=== PATIENT | female | born 1985 ===

== ENCOUNTER 2018-01-26 09:13 | Emergency (ER) | payer OTHER ==
[2018-01-26 09:13] VITALS: BMI 33.0
[2018-01-26] MEDS ORDERED: Sodium Chloride 0.9% 1,000 ML IV STA (09:42)
--- NOTE | 2018-01-26 09:48 | ED PDOC ---
Arrival/HPI - General Chief Complaint: GI Problem Time Seen by Provider: 01/26/18 09:19 Historian: Patient - History of Present Illness Narrative History of Present Illness (Text): 01/26/18 09:44 32yo female with no pmhx who present with complaint of nausea, nonbloody/ billious vomiting, diarrhea and intermittent crampy abdominal pain. States the abdominal pain usually resolves after vomiting. States she became dizzy while at work this morning. Describes dizziness as lightheadedness. +Chills. Denies fever, melena, hematemesis, back pain, urinary symptoms, sick contact, travel, chest pain. Past Medical History - Provider Review Nursing Documentation Reviewed: Yes - Cardiac Hx Cardiac Disorders: No - Pulmonary Hx Respiratory Disorders: No - Neurological Hx Neurological Disorder: No - HEENT Hx HEENT Disorder: No - Renal Hx Renal Disorder: No - Endocrine/Metabolic Hx Endocrine Disorders: No - Hematological/Oncological Hx Blood Disorders: No - Integumentary Hx Dermatological Disorder: No - Musculoskeletal/Rheumatological Hx Musculoskeletal Disorders: No - Gastrointestinal Hx Gastrointestinal Disorders: No - Genitourinary/Gynecological Hx Genitourinary Disorders: No - Psychiatric Hx Psychophysiologic Disorder: No Hx Substance Use: No - Surgical History Hx Section: Yes - Anesthesia Hx Anesthesia: Yes Hx Anesthesia Reactions: No Family/Social History - Physician Review Nursing Documentation Reviewed: Yes Family/Social History: Unknown Family HX Smoking Status: Unknown If Ever Smoked Hx Alcohol Use: No Hx Substance Use: No Allergies/Home Meds Allergies/Adverse Reactions: Allergies No Known Allergies Allergy (Verified 01/26/18 09:33) Review of Systems - Physician Review All systems were reviewed & negative as marked: Yes - Review of Systems Constitutional: Normal Eyes: Normal ENT: Normal Respiratory: Normal Cardiovascular: Normal Gastrointestinal: Abdominal Pain, Diarrhea, Nausea, Vomiting. absent: Constipation, Hematochezia, Hematemesis Genitourinary Female: Normal Musculoskeletal: Normal Skin: Normal Neurological: Normal Endocrine: Normal Hemo/Lymphatic: Normal Psychiatric: Normal Physical Exam Vital Signs Reviewed: Yes Vital Signs Temp Pulse Resp BP Pulse Ox 01/26/18 12:51 98.3 F 100 H 18 106/63 98 01/26/18 12:50 98.3 F 100 H 18 106/63 98 01/26/18 11:38 102 H 18 104/60 99 01/26/18 09:33 99.1 F 107 H 16 105/67 98 01/26/18 09:13 99.1 F 107 H 16 105/67 98 Temperature: Afebrile Blood Pressure: Normal Pulse: Regular Respiratory Rate: Normal Appearance: Positive for: Well-Appearing, Non-Toxic, Comfortable Pain Distress: None Mental Status: Positive for: Alert and Oriented X 3 - Systems Exam Head: Present: Atraumatic, Normocephalic Pupils: Present: PERRL Extroacular Muscles: Present: EOMI Conjunctiva: Present: Normal Mouth: Present: Moist Mucous Membranes Neck: Present: Normal Range of Motion Respiratory/Chest: Present: Clear to Auscultation, Good Air Exchange. No: Respiratory Distress, Accessory Muscle Use Cardiovascular: Present: Regular Rate and Rhythm, Normal S1, S2. No: Murmurs Abdomen: No: Tenderness, Distention, Peritoneal Signs Back: Present: Normal Inspection Upper Extremity: Present: Normal Inspection. No: Cyanosis, Edema Lower Extremity: Present: Normal Inspection. No: Edema Neurological: Present: GCS=15, CN II-XII Intact, Speech Normal Skin: Present: Warm, Dry, Normal Color. No: Rashes Psychiatric: Present: Alert, Oriented x 3, Normal Insight, Normal Concentration Medical Decision Making ED Course and Treatment: 01/26/18 19:10 32yo female who present with 2days history of abdominal pain with associated nausea/vomiting and diarrhea. She was hemodynamically stable and comfortable in ED. Leukocytosis was noted and abdominal CT was ordered to r/o appendicitis. GALLBLADDER AND BILE DUCTS: The gallbladder is contracted. PANCREAS: Normal in size with homogeneous enhancement. No gross lesion or ductal dilatation. SPLEEN: Normal in size and appearance. ADRENALS: No discrete nodule. KIDNEYS AND URETERS: Normal in size with homogeneous enhancement. No hydronephrosis or mass. VASCULATURE: No aortic aneurysm. BOWEL: There is fluid in the stomach and proximal small bowel loops. There are fluid- filled mildly dilated mid and distal small bowel loops with mild wall enhancement. There is also fluid in the ascending colon. There is apparent mild mural thickening in the transverse colon. The left hemicolon is decompressed. No bowel obstruction. APPENDIX: Not distinctly identified. No inflammatory changes in the right lower quadrant. PERITONEUM: No free fluid. No free air. LYMPH NODES: Mildly prominent right lower quadrant mesenteric lymph nodes are likely reactive in etiology BLADDER: Partially decompressed. REPRODUCTIVE: The uterus is normal in size. BONES: No acute fracture. Within normal limits for the patient's age. OTHER FINDINGS: None. IMPRESSION: 1. Findings are most compatible with nonspecific infectious/ inflammatory enterocolitis. No bowel obstruction. 2. Mild hepatomegaly and fatty liver. Result was DW the pt. She was able to tolerate PO challenge in ED . She was placed on flagyl secondary to the CT finding. She was DC home and referred to her PMD. Advised to follow BRAT diet. TRT ED for any new or worsening symptoms - Lab Interpretations Lab Results: 01/26/18 09:42 01/26/18 09:42 Lab Results 01/26/18 09:43: Urine Color Yellow, Urine Appearance Clear, Urine pH 6.0, Ur Specific [place] >= 1.030, Urine Protein Trace H, Urine Glucose (UA) Negative, Urine Ketones Negative, Urine Blood Negative, Urine Nitrate Negative, Urine Bilirubin Negative, Urine Urobilinogen 0.2, Ur Leukocyte Esterase Negative, Urine RBC Negative, Urine WBC 0 - 2, Ur Epithelial Cells 1 - 3, Urine Bacteria Few 01/26/18 09:42: Sodium 141, Potassium 3.5 L, Chloride 104, Carbon Dioxide 23, Anion Gap 17, BUN 15, Creatinine 0.5 L, Est GFR ( Amer) > 60, Est GFR ( Non-Af Amer) > 60, Random Glucose 114 H, Calcium 9.1, Magnesium 1.8, Total Bilirubin 0.6, AST 24, ALT 24, Alkaline Phosphatase 73, Total Protein 8.1, Albumin 4.4, Globulin 3.7, Albumin/Globulin Ratio 1.2, Lipase 37 01/26/18 09:42: PT 15.4 H, INR 1.33 H, APTT 26.7 01/26/18 09:42: WBC 16.7 H, RBC 4.67, Hgb 12.3, Hct 37.5, MCV 80.3, MCH 26.3, MCHC 32.8, RDW 13.5, Plt Count 379, MPV 9.1, Gran % 95.8 H, Lymph % (Auto) 2.7 L , [place] % (Auto) 1.4, Eos % (Auto) 0.0 L, Baso % (Auto) 0.1, Gran # 15.96 H, Lymph # (Auto) 0.5 L, [place] # (Auto) 0.2, Eos # (Auto) 0.0, Baso # (Auto) 0.01, Neutrophils % (Manual) 94 H, Band Neutrophils % 2, Lymphocytes % (Manual) 2 L, Monocytes % (Manual) 2, Platelet Evaluation Normal - RAD Interpretation Radiology Orders: 01/26/18 10:17 ABD & PELVIS IV CONTRAST ONLY [CT] Stat - Medication Orders Current Medication Orders: Discontinued Medications Famotidine (Pepcid) 20 mg IVP STAT STA Stop: 01/26/18 09:43 Last Admin: 01/26/18 10:04 Dose: 20 mg IVP Administration Document 01/26/18 10:04 SRE (Rec: 01/26/18 10:04 SRE [id number]) Charges for Administration # of IVP Administrations 1 Sodium Chloride (Sodium Chloride 0.9%) 1,000 mls @ 1,000 mls/hr IV .Q1H STA Stop: 01/26/18 10:41 Last Admin: 01/26/18 09:54 Dose: 1,000 mls/hr eMAR Start Stop Document 01/26/18 09:54 SRE (Rec: 01/26/18 09:54 SRE [id number]) Intravenous Solution Start Date 01/26/18 Start Time 09:54 End Date 01/26/18 End time 11:00 Total Infusion Time 66 Metronidazole (Flagyl) 500 mg PO STAT STA PRN Reason: Protocol Stop: 01/26/18 12:12 Last Admin: 01/26/18 12:42 Dose: 500 mg Ondansetron HCl (Zofran Inj) 4 mg IVP STAT STA Stop: 01/26/18 09:43 Last Admin: 01/26/18 10:03 Dose: 4 mg IVP Administration Document 01/26/18 10:03 SRE (Rec: 01/26/18 10:04 SRE [id number]) Charges for Administration # of IVP Administrations 1 Ondansetron HCl (Zofran Inj) 4 mg IVP STAT STA Stop: 01/26/18 11:08 Last Admin: 01/26/18 11:25 Dose: 4 mg IVP Administration Document 01/26/18 11:25 SRE (Rec: 01/26/18 11:25 SRE [id number]) Charges for Administration # of IVP Administrations 1 Potassium Chloride (K-Dur 20 Meq Er Tab) 20 meq PO STAT STA Stop: 01/26/18 10:25 Last Admin: 01/26/18 10:38 Dose: 20 meq Disposition/Present on Arrival - Present on Arrival Any Indicators Present on Arrival: No History of DVT/PE: No History of Uncontrolled Diabetes: No Urinary Catheter: No History of Decub. Ulcer: No History Surgical Site Infection Following: None - Disposition Have Diagnosis and Disposition been Completed?: Yes Diagnosis: Abdominal pain Disposition: HOME/ ROUTINE Disposition Time: 12:35 Patient Plan: Discharge Condition: STABLE Discharge Instructions (ExitCare): Acute Abdomen (Belly Pain), Nausea and Vomiting, Adult (DC) Additional Instructions: Follow BRAT diet Drink plnety of fluid Follow up with your Doctor Return to ED for any new or worsening symptoms Prescriptions: Famotidine [Pepcid] 40 mg PO DAILY #15 tab metroNIDAZOLE [Flagyl] 500 mg PO BID #14 tab Ondansetron ODT [Zofran ODT] 4 mg PO Q6 #8 odt Referrals: Fuentes Cortez [Primary Care Provider] - Follow up with primary Forms: [email or web address] (Dominican), WORK NOTE
[2018-01-26 10:06] LABS: BASO # 0.01 K/mm3 (0.0-2.0); BASO % 0.1 % (0.0-3.0); GRAN # 15.96 (1.4-6.5); GRAN % 95.8 % (50.0-68.0); HEMOGLOBIN 12.3 g/dL (12.0-16.0); LYMPH # 0.5 (1.2-3.4); LYMPH % 2.7 % (22.0-35.0); MEAN CELL VOLUME 80.3 fl (80.0-105.0); MEAN CORPUSCULAR HEMOGLOBIN 26.3 pg (25.0-35.0); MEAN CORPUSCULAR HGB CONC 32.8 g/dl (31.0-37.0); MEAN PLATELET VOLUME 9.1 fl (7.0-11.0); MONO # 0.2 (0.1-0.6); MONO % 1.4 % (1.0-6.0); PLATELET COUNT 379 10^3/uL (120.0-450.0); RBC 4.67 10^6/uL (3.5-6.1); RED CELL DISTRIBUTION WIDTH 13.5 % (11.5-14.5); WHITE BLOOD COUNT 16.7 10^3/ul (4.5-11.0)
[2018-01-26 10:09] LABS: URINE BILIRUBIN NEGATIVE (NEGATIVE); URINE BLOOD NEGATIVE (NEGATIVE); URINE GLUCOSE (UA) NEGATIVE (NEGATIVE); URINE LEUKOCYTE ESTERASE NEGATIVE Leu/uL (NEGATIVE); URINE PROTEIN TRACE mg/dL (<30 mg/dL); URINE UROBILINOGEN 0.2 E.U./dL (<1 E.U./dL)
[2018-01-26 10:17] LABS: INR 1.33 (0.93-1.08); PARTIAL THROMBOPLASTIN TIME 26.7 Seconds (25.1-36.5); PROTHROMBIN TIME 15.4 SECONDS (9.4-12.5)
[2018-01-26 10:18] LABS: ALB/GLOB RATIO 1.2 (1.1-1.8); ALBUMIN 4.4 g/dL (3.0-4.8); ALT/SGPT 24 U/L (7-56); AST/SGOT 24 U/L (14-36); BLOOD UREA NITROGEN 15 mg/dL (7-21); CALCIUM 9.1 mg/dL (8.4-10.5); GFR AFRICAN-AMERICAN > 60; GFR NON-AFRICAN AMERICAN > 60; LIPASE 37 U/L (23-300)
[2018-01-26 10:19] LABS: URINE APPEARANCE CLEAR (CLEAR); URINE COLOR YELLOW (YELLOW)
[2018-01-26] MEDS ORDERED: Iohexol 350 MG/100 ML VIAL ONE (10:23)
[2018-01-26] MEDS ORDERED: Potassium Chloride 20 mEq ER Tab PO STA (10:24)
[2018-01-26 10:27] LABS: URINE RBC NEGATIVE /hpf (0-2); URINE WBC 0 - 2 /hpf (0-6)
[2018-01-26 10:28] LABS: URINE BACTERIA FEW (NEG)
[2018-01-26 10:35] LABS: BAND 2 % (0-2); LYMPHOCYTE 2 % (22.0-35.0); MONOCYTE 2 % (1.0-6.0); NEUTROPHIL 94 % (50.0-70.0); PLATELET ESTIMATE NORMAL (NORMAL)
--- NOTE | 2018-01-26 11:30 | CT ---
Date of service: 01/26/2018 PROCEDURE: CT Abdomen and Pelvis with contrast HISTORY: Abdominal pain COMPARISON: None. TECHNIQUE: CT scan of the abdomen and pelvis was performed after administration of intravenous contrast. Oral contrast was not administered. Coronal and sagittal reformatted images were obtained. Contrast dose: 100 mL Omnipaque 350 Radiation dose: Total exam DLP = 703.84 mGy-cm. This CT exam was performed using one or more of the following dose reduction techniques: Automated exposure control, adjustment of the mA and/or kV according to patient size, and/or use of iterative reconstruction technique. FINDINGS: LOWER THORAX: There is dependent atelectasis in the lung bases. LIVER: There is mild hepatomegaly and diffuse fatty infiltration in the liver. No gross lesion or ductal dilatation. GALLBLADDER AND BILE DUCTS: The gallbladder is contracted. PANCREAS: Normal in size with homogeneous enhancement. No gross lesion or ductal dilatation. SPLEEN: Normal in size and appearance. ADRENALS: No discrete nodule. KIDNEYS AND URETERS: Normal in size with homogeneous enhancement. No hydronephrosis or mass. VASCULATURE: No aortic aneurysm. BOWEL: There is fluid in the stomach and proximal small bowel loops. There are fluid-filled mildly dilated mid and distal small bowel loops with mild wall enhancement. There is also fluid in the ascending colon. There is apparent mild mural thickening in the transverse colon. The left hemicolon is decompressed. No bowel obstruction. APPENDIX: Not distinctly identified. No inflammatory changes in the right lower quadrant. PERITONEUM: No free fluid. No free air. LYMPH NODES: Mildly prominent right lower quadrant mesenteric lymph nodes are likely reactive in etiology BLADDER: Partially decompressed. REPRODUCTIVE: The uterus is normal in size. BONES: No acute fracture. Within normal limits for the patient's age. OTHER FINDINGS: None. IMPRESSION: 1. Findings are most compatible with nonspecific infectious/ inflammatory enterocolitis. No bowel obstruction. 2. Mild hepatomegaly and fatty liver.
[2018-01-26 11:39] VITALS: RESP 18
[2018-01-26 12:51] VITALS: BP 106/63; PULSE 100; TEMP 98.3; O2SAT 98
== END 2018-01-26 12:51 | disposition home or self-care (01) ==
LOC: ED 09:13
DX: R10.9 Unspecified abdominal pain (principal)
CPT/HCPCS: 74177; 80053; 81001; 83690; 83735; 85025; 85610; 85730; 96361; 96374; 96375; 96376; 99284; J2405; J7030; Q9967

== ENCOUNTER 2018-03-19 13:28 | Emergency (ER) | payer OTHER ==
[2018-03-19 13:33] VITALS: BP 119/84; PULSE 94; RESP 18; TEMP 98.2; BMI 27.4
[2018-03-19] MEDS ORDERED: Tmp-Smz 800 mg-160 mg DS Tab PO STA (14:47)
[2018-03-19] MEDS ORDERED: TDAP Vaccine 0.5 mL Syr IM ONE (14:50)
--- NOTE | 2018-03-19 14:58 | ED PDOC ---
Arrival/HPI - General Chief Complaint: Finger,Hand,&Wrist Time Seen by Provider: 03/19/18 14:47 Historian: Patient - History of Present Illness Narrative History of Present Illness (Text): 03/19/18 16:03 32yr old female presents today with a 6 day history of laceration to the left thumb. Patient states 6 days ago she cut her thumb on a piece of glass. Patient states she Steri-Stripped the wound together. Patient states today she noticed that the finger was a little swollen. Patient denies numbness weakness or tingling in the extremity. Denies any discharge from wound. no fever/chills. pt denies limited rom of finger. no other complaints. Past Medical History - Provider Review Nursing Documentation Reviewed: Yes - Travel History Have you recently traveled outside [place] w/in the past 3 mons?: No - Cardiac Hx Cardiac Disorders: No - Pulmonary Hx Respiratory Disorders: No - Neurological Hx Neurological Disorder: No - HEENT Hx HEENT Disorder: No - Renal Hx Renal Disorder: No - Endocrine/Metabolic Hx Endocrine Disorders: No - Hematological/Oncological Hx Blood Disorders: No - Integumentary Hx Dermatological Disorder: No - Musculoskeletal/Rheumatological Hx Musculoskeletal Disorders: No - Gastrointestinal Hx Gastrointestinal Disorders: No - Genitourinary/Gynecological Hx Genitourinary Disorders: No - Psychiatric Hx Psychophysiologic Disorder: No Hx Substance Use: No - Surgical History Hx Section: Yes - Anesthesia Hx Anesthesia: Yes Hx Anesthesia Reactions: No Family/Social History - Physician Review Nursing Documentation Reviewed: Yes Family/Social History: Unknown Family HX Smoking Status: Unknown If Ever Smoked Hx Alcohol Use: No Hx Substance Use: No Allergies/Home Meds Allergies/Adverse Reactions: Allergies No Known Allergies Allergy (Verified 01/26/18 09:33) Review of Systems - Review of Systems Constitutional: absent: Fatigue, Fevers Respiratory: absent: SOB, Cough Cardiovascular: absent: Chest Pain, Palpitations Gastrointestinal: absent: Abdominal Pain, Nausea, Vomiting Musculoskeletal: Arthralgias. absent: Back Pain, Neck Pain Skin: Laceration (6days ago left thumb) Neurological: absent: Headache, Dizziness Psychiatric: absent: Anxiety, Depression Physical Exam Vital Signs Reviewed: Yes Vital Signs Temp Pulse Resp BP Pulse Ox 03/19/18 15:12 98.2 F 94 H 18 98 03/19/18 13:32 98.2 F 94 H 18 119/84 100 Temperature: Afebrile Blood Pressure: Normal Pulse: Regular Respiratory Rate: Normal Appearance: Positive for: Well-Appearing, Non-Toxic, Comfortable Pain Distress: None Mental Status: Positive for: Alert and Oriented X 3 - Systems Exam Head: Present: Atraumatic Mouth: Present: Moist Mucous Membranes Neck: Present: Normal Range of Motion Respiratory/Chest: Present: Clear to Auscultation, Good Air Exchange. No: Respiratory Distress, Accessory Muscle Use Cardiovascular: Present: Regular Rate and Rhythm, Normal S1, S2. No: Murmurs Upper Extremity: Present: Normal ROM, NORMAL PULSES, Swelling, Neurovascularly Intact, Capillary Refill < 2s, Other (left thumb; there is a small 1cm laceration with macerated edges without erythema at 1st IP joint. full rom of finger. sensation and distal pulses intact. cap refill <2. ). No: Tenderness, Erythema, Deformity Neurological: Present: GCS=15, Speech Normal Skin: Present: Warm, Dry, Normal Color Psychiatric: Present: Alert, Oriented x 3 Medical Decision Making ED Course and Treatment: 03/19/18 16:30 Patient is nontoxic well appearing in no distress. Vital signs are stable. Wound irrigated well with high pressure irrigation Tetanus updated keflex and Bactrim xray;FINDINGS: BONES: Normal. No fracture. JOINTS: Normal. No osteoarthritic changes. SOFT TISSUES: Normal. OTHER FINDINGS: None. IMPRESSION: No fracture or foreign body Laceration is 6 days old. will allow to heal by secondary intention. Patient was advised to keep the wound clean and dry, apply bacitracin twice daily.pt was advised to take abx as prescribed and f/u with hand specialist. Advised to return immediately if signs of infection develop or return if any other concerning symptoms develop Impression: Laceration, finger - RAD Interpretation Radiology Orders: 03/19/18 14:51 HAND LEFT THUMB [RAD] Stat - Medication Orders Current Medication Orders: Discontinued Medications Cephalexin Monohydrate (Keflex) 500 mg PO STAT STA PRN Reason: Protocol Stop: 03/19/18 14:48 Last Admin: 03/19/18 15:10 Dose: 500 mg Tetanus/Reduced Diphtheria/Acell Pertussis (Boostrix Vaccine Inj) 0.5 ml IM .ONCE ONE Stop: 03/19/18 14:51 Last Admin: 03/19/18 15:10 Dose: 0.5 ml Immunization Registry Document 03/19/18 15:10 [email or web address] (Rec: 03/19/18 15:10 [email or web address] [id number]) Immunization Registry Consent Date 01/26/18 Trimethoprim/Sulfamethoxazole (Bactrim Ds Tab) 1 tab PO STAT STA PRN Reason: Protocol Stop: 03/19/18 14:48 Last Admin: 03/19/18 15:09 Dose: 1 tab Disposition/Present on Arrival - Present on Arrival Any Indicators Present on Arrival: No History of DVT/PE: No History of Uncontrolled Diabetes: No Urinary Catheter: No History of Decub. Ulcer: No History Surgical Site Infection Following: None - Disposition Have Diagnosis and Disposition been Completed?: Yes Diagnosis: Laceration of finger with infection Disposition: HOME/ ROUTINE Disposition Time: 14:54 Patient Plan: Discharge Condition: GOOD Discharge Instructions (ExitCare): Laceration Infection Additional Instructions: Motrin every 6 hours as needed for pain Keflex one capsule 4 times daily 7 days Bactrim; 1 tablet twice daily x 7 days. keep wound clean and dry apply bacitracin twice daily Follow up with the hand specialist within the next 2 days return immediately if symptoms worsen,persist or if new symptoms develop. Prescriptions: Bacitracin OINT 1 applic TP BID #1 tube Cephalexin [Keflex] 500 mg PO QID #28 capsule Sulfamethoxazole/Trimethoprim [Bactrim DS 800 mg-160 mg] 1 tab PO BID #14 tab Referrals: Carlyle Lino MD [Staff Provider] - Follow up with primary Leydi Patel MD [Medical Doctor] - Follow up with primary [employer] [Outside] - Follow up with primary Jerome Scott MD [Staff Provider] - Follow up with primary Forms: [employer] (Portuguese), WORK NOTE
--- NOTE | 2018-03-19 15:06 | RAD ---
PROCEDURE: Left Hand Radiographs. HISTORY: laceration at IP joint COMPARISON: None. FINDINGS: BONES: Normal. No fracture. JOINTS: Normal. No osteoarthritic changes. SOFT TISSUES: Normal. OTHER FINDINGS: None. IMPRESSION: No fracture or foreign body
[2018-03-19 15:13] VITALS: O2SAT 98
== END 2018-03-19 15:16 | disposition home or self-care (01) ==
LOC: ED 13:28
DX: S61.012A Laceration without foreign body of left thumb without damage to nail, initial encounter (principal); L08.9 Local infection of the skin and subcutaneous tissue, unspecified; W25.XXXA Contact with sharp glass, initial encounter; Z23 Encounter for immunization